=== PATIENT | male | born 1940 | race Caucasian/White ===

== ENCOUNTER → 2017-02-27 | Outpatient (CLI) | payer MEDICARE, BC ==
[2017-02-27 09:53] LABS: ALANINE AMINOTRANSFERASE 31 U/L (21-72); ALBUMIN 4.5 g/dL (3.5-5.0); ALKALINE PHOSPHATASE 65 U/L (38-126); ANION GAP 10 (5-19); ASPARTATE AMINO TRANSFERASE 26 U/L (17-59); BILIRUBIN,DIRECT 0.4 mg/dL (0.0-0.4); BILIRUBIN,TOTAL 0.8 mg/dL (0.2-1.3); BLOOD UREA NITROGEN 18 mg/dL (7-20); CALCIUM 10.3 mg/dL (8.4-10.2); CARBON DIOXIDE 28 mmol/L (22-30); CHLORIDE 104 mmol/L (98-107); CHOLESTEROL 155.29 mg/dL (0-200); CREATININE RESULT 1.22 mg/dL (0.52-1.25); Direct HDL 46 mg/dL (>40); GLUCOSE 141 mg/dL (75-110); SODIUM 141.8 mmol/L (137-145); TOTAL PROTEIN 7.5 g/dL (6.3-8.2); TRIGLYCERIDES 123 mg/dL (<150)
[2017-02-27 10:04] LABS: DIRECT LDL 76 mg/dL (<100)
== END ==
LOC: OD 08:45
PROVIDERS: ATTEND Internal Medicine
DX: I25.10 Atherosclerotic heart disease of native coronary artery without angina pectoris (principal); I10 Essential (primary) hypertension; E78.4 Other hyperlipidemia; E11.9 Type 2 diabetes mellitus without complications; I34.0 Nonrheumatic mitral (valve) insufficiency; I71.4 Abdominal aortic aneurysm, without rupture; I73.9 Peripheral vascular disease, unspecified; R01.1 Cardiac murmur, unspecified; Z79.899 Other long term (current) drug therapy
CPT/HCPCS: 36415; 80053; 80061; 83036

== ENCOUNTER 2018-07-14 12:49 | Emergency (ER) | payer MEDICARE, BC ==
--- NOTE | 2018-07-14 14:13 | ER Document Report ---
ED Medical Screen (RME) - General Chief Complaint: Thigh Injury Stated Complaint: FALL/LEFT LEG INJURY Time Seen by Provider: 07/14/18 14:00 Mode of Arrival: Ambulatory Information source: Patient Notes: 78-year-old male with hypertension, hyperlipidemia, type 2 diabetes, coronary artery disease presents from his primary care physician's office after he stepped in a weak spot of his roof causing his leg to fall through. Patient went to his primary care physician's office who is concerned after the patient had a blood pressure of 60/36. Patient does have a large expanding hematoma of the left thigh. Patient takes aspirin only. PCP concern for vascular injury. I have greeted and performed a rapid initial assessment of this patient. A comprehensive ED assessment and evaluation of the patient, analysis of test results and completion of medical decision making process we will be contacted by additional ED providers. PHYSICAL EXAMINATION: Vital signs reviewed GENERAL: Well-appearing, well-nourished and in no acute distress. LUNGS: No respiratory distress Musculoskeletal: Normal range of motion NEUROLOGICAL: Normal speech, normal gait. PSYCH: Normal mood, normal affect. SKIN: Ecchymosis of the left thigh with significant induration. TRAVEL OUTSIDE OF THE [place] IN LAST 30 DAYS: No - HPI Onset: Just prior to arrival Onset/Duration: Sudden Quality of pain: Throbbing Severity: Moderate Associated Symptoms: None Exacerbated by: Movement, Walking Relieved by: Remaining still Similar symptoms previously: No Recently seen / treated by doctor: No - Related Data Smoking: Non-smoker Frequency of alcohol use: None Drug Abuse: None Allergies/Adverse Reactions: iodipamide meglumine [Iodipamide Meglumine] Allergy (Unknown, Verified 07/14/18 12:53) IVP Dye Allergy (Uncoded 07/14/18 12:53) Past Medical History - Social History Chew tobacco use (# tins/day): No Frequency of alcohol use: None Drug Abuse: None - Past Medical History Cardiac Medical History: Reports: Hx Coronary Artery Disease - Lipitor, Hx Hypercholesterolemia, Hx Hypertension - Metoproplol Pulmonary Medical History: Reports: Hx Sleep Apnea Neurological Medical History: Denies: Hx Seizures Endocrine Medical History: Reports: Hx Diabetes Mellitus Type 2 Renal/ Medical History: Denies: Hx Peritoneal Dialysis GI Medical History: Reports: Hx Colonoscopy - Colonoscopy in June 2014 and July 2014. Denies: Hx Cirrhosis, Hx Crohn's Disease, Hx Diverticulitis, Hx Gastritis, Hx Ulcer, Hx Ulcerative Colitis Musculoskeltal Medical History: Reports Hx Gout Psychiatric Medical History: Denies: Hx Depression Infectious Medical History: Denies: Hx C-Diff Past Surgical History: Reports: Hx Abdominal Surgery - AAA repair, Hx Cardiac Catheterization, Hx Cardiac Surgery, Hx Coronary Artery Bypass Graft, Hx Orthopedic Surgery - thr left - Immunizations Hx Diphtheria, Pertussis, Tetanus Vaccination: No Physical Exam - Vital signs Vitals: Temp Pulse Resp BP Pulse Ox 97.3 F 65 18 91/69 L 97 07/14/18 13:03 07/14/18 13:03 07/14/18 13:03 07/14/18 13:03 07/14/18 13:03 Course - Vital Signs Vital signs: Temp Pulse Resp BP Pulse Ox 97.3 F 65 18 91/69 L 97 07/14/18 13:03 07/14/18 13:03 07/14/18 13:03 07/14/18 13:03 07/14/18 13:03 Doctor's Discharge - Discharge Referrals: TANIKA HERNANDEZ MD [Primary Care Provider] - Follow up as needed
[2018-07-14 14:44] LABS: HEMATOCRIT 41.1 % (37.9-51.0); HEMOGLOBIN 13.9 g/dL (13.5-17.0); MEAN CORPUSCULAR HEMOGLOBIN 33.1 pg (27.0-33.4); MEAN CORPUSCULAR HGB CONC 33.8 g/dL (32.0-36.0); MEAN CORPUSCULAR VOLUME 98 fl (80-97); PLATELET COUNT 256 10^3/uL (150-450); WHITE BLOOD COUNT 16.4 10^3/uL (4.0-10.5)
[2018-07-14 14:51] LABS: INTERNATIONAL RATION (INR) 0.95; PARTIAL THROMBOPLASTIN TIME 24.2 SEC (23.5-35.8); PROTHROMBIN TIME 13.2 SEC (11.4-15.4)
[2018-07-14 15:14] LABS: ABSOLUTE LYMPHOCYTES# (MANUAL) 0.8 10^3/uL (0.5-4.7); ABSOLUTE MONOCYTES # (MANUAL) 0.8 10^3/uL (0.1-1.4); ABSOLUTE NEUTROPHILS# (MANUAL) 14.6 10^3/uL (1.7-8.2); BAND NEUTROPHILS % (MANUAL) 2 % (3-5); BASOPHILS % (MANUAL) 0 % (0-2); EOSINOPHILS % (MANUAL) 1 % (0-6); LYMPHOCYTES % (MANUAL) 5 % (13-45); MONOCYTES % (MANUAL) 5 % (3-13); SEGMENTED NEUTROPHILS % (MAN) 87 % (42-78); TOTAL CELLS COUNTED 100
[2018-07-14 15:15] LABS: OVALOCYTES 1+; PLATELET CLUMPS PRESENT; POIKILOCYTOSIS 1+; TOXIC GRANULATION SLIGHT
[2018-07-14 15:20] LABS: ANION GAP 7 (5-19); BLOOD UREA NITROGEN 19 mg/dL (7-20); CALCIUM 9.7 mg/dL (8.4-10.2); CARBON DIOXIDE 26 mmol/L (22-30); CHLORIDE 103 mmol/L (98-107); GLUCOSE 178 mg/dL (75-110); POTASSIUM 4.9 mmol/L (3.6-5.0); SODIUM 136.4 mmol/L (137-145)
--- NOTE | 2018-07-14 15:34 | RADIOLOGY REPORT (SQ) ---
EXAM DESCRIPTION: FEMUR LEFT COMPLETED DATE/TIME: 07/14/2018 3:24 pm REASON FOR STUDY: fall COMPARISON: None. NUMBER OF VIEWS: Two views. TECHNIQUE: Two radiographic images acquired of the left femur to include hip and knee in at least on e projection. LIMITATIONS: None. FINDINGS: MINERALIZATION: Normal. 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 No acute fracture or dislocation. SOFT TISSUES: There are surgical clips in the posterior aspect of the thigh. OTHER: No other significant finding. IMPRESSION: Postsurgical changes. No acute findings. TECHNICAL DOCUMENTATION: JOB ID: [id number] [employer]- All Rights Reserved Reading location - IP/workstation name: [email or web address]
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
[2018-07-14 18:10] VITALS: BP 110/68
--- NOTE | 2018-07-15 11:05 | XCELERA REPORT ---
[address] [address] Lower Extremity Arterial Evaluation Name: TANIKA KRAUSE Age: 78 yrs Gender: Male : 1940 Patient Status: Emergency Patient Location: ER Study Date: 07/14/2018 04:39 PM Procedure: A color flow and duplex scan of the lower extremity arteries was performed on the left with velocity and waveform anaylsis. Reason For Study: Fall with expanding hematoma Ordering Physician: JENIFFER CANCINO Performed By: Alejandrina Gordillo Measurements and Calculations Right Left DENTAL CHAIRSIDE ASSISTANT PSV 51.1 cm/sec Prox PFA PSV -48.4 cm/sec Prox SFA PSV 33.9 cm/sec Mid SFA PSV -46.5 cm/sec Dist SFA PSV -57.5 cm/sec Prox Pop A PSV 35.2 cm/sec Dist JONAS PSV 35.8 cm/sec Dist INFANTRY INDIRECT FIRE CREWMEMBER PSV 28.9 cm/sec Taj Pedis PSV 45.0 34.6 cm/sec Right Side Arterial Evaluation Velocity in the Dorsalis Pedis is 0.45 M/sec. Left Side Arterial Evaluation An area in the lateral thigh, complex with no vascularity is noted in the deep subcutaneous tissues. Too large for measurement by ultrasound probe. Normal velocity and triphasic waveforms noted from the Common Femoral artery to the infrageniculate vessels . Ankle Brachial index not obtained . Interpretation Summary Large area in lateral thigh is likely a hematoma. No hemodynamically significant lesions in the left lower extremity only, on duplex imaging, at rest. : JENIFFER CANCINO [place]
== END 2018-07-14 18:11 | disposition home or self-care (01) ==
LOC: ER 12:49
DX: S70.12XA Contusion of left thigh, initial encounter (principal); W13.3XXA Fall through floor, initial encounter; Y92.008 Other place in unspecified non-institutional (private) residence as the place of occurrence of the external cause; I25.10 Atherosclerotic heart disease of native coronary artery without angina pectoris; I10 Essential (primary) hypertension; E11.9 Type 2 diabetes mellitus without complications
CPT/HCPCS: 36415; 80048; 85025; 85610; 85730; 93926; 99284